=== PATIENT | male | born 1995 | race Caucasian/White ===

== ENCOUNTER 2025-09-20 20:31 | Emergency (ER) | payer OTHER ==
[~2025-09-20] VITALS: Ht 172.7 cm; Wt 60.0 kg
[2025-09-20] MEDS ORDERED: ABILIFY30 MG PO (20:46)
[2025-09-20] MEDS ORDERED: VALIUM10 MG PO (20:47)
[2025-09-20] MEDS ORDERED: ZOLOFT100 MG (20:47)
[2025-09-20] MEDS ORDERED: ONDANSETRON 4 MG TAB ODT SL ONE (21:00)
[2025-09-20] MEDS ORDERED: ONDANSETRON 4 MG HOME.PACK SL ONE (22:30)
[2025-09-20 22:44] VITALS: BP 115/83
== END 2025-09-20 22:47 | disposition home or self-care (01) ==
LOC: ED 20:31
DX: S06.9X9A Unspecified intracranial injury with loss of consciousness of unspecified duration, initial encounter (principal); S00.211A Abrasion of right eyelid and periocular area, initial encounter; W22.8XXA Striking against or struck by other objects, initial encounter; Z79.899 Other long term (current) drug therapy; Z88.8 Allergy status to other drugs, medicaments and biological substances
CPT/HCPCS: 70450; 99284-25; A9270

== ENCOUNTER 2025-10-02 14:47 | Emergency (ER) | payer OTHER ==
[~2025-10-02] VITALS: Ht 172.7 cm; Wt 73.0 kg
--- NOTE | ~2025-10-02 | EKG ---
[facility] [address] [facility] [place], [place] [address] Draft EK completed, results pending confirmation PATIENT NAME: ABBY GIRALDO ALEYDA Electrocardiogram DATE OF : 89 PHYSICIAN: PRELIMINARY REPORT #: [id number] REPORT IS CONFIDENTIAL AND NOT TO BE RELEASED WITHOUT AUTHORIZATION
--- NOTE | ~2025-10-02 | EKG ---
[facility] [address] [facility] [place], [place] [address] Draft EK completed, results pending confirmation PATIENT NAME: ABBY GIRALDO ALEYDA Electrocardiogram DATE OF : 89 PHYSICIAN: PRELIMINARY REPORT #: [id number] REPORT IS CONFIDENTIAL AND NOT TO BE RELEASED WITHOUT AUTHORIZATION
[~2025-10-02 14:47] MED LIST: ABILIFY30 MG PO; VALIUM10 MG PO; ZOLOFT100 MG
--- OUTSIDE RECORDS SUMMARY | 2025-10-02 14:51 | XMS ---
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 - 2 Visits in 30 Days CARE PROVIDERS There are no care providers on record at this time. Dilia has no Care Guidelines for this patient. [facility] VISIT COUNT (12 MO.) 2 [facility] TOTAL 3 NOTE: Visits indicate total known visits. ED/C VISIT TRACKING (12 MO.) 10/02/2025 14:47 [facility] TYPE: Emergency COMPLAINT: - OD INTENTIONAL 09/20/2025 20:32 [facility] TYPE: Emergency COMPLAINT: - HEAD INJURY DIAGNOSES: - Abrasion of right eyelid and periocular area, initial encounter - Allergy status to other drugs, medicaments and biological substances - Other group home (current) drug therapy - Striking against or struck by other objects, initial encounter - Unspecified injury of head, initial encounter - Unspecified intracranial injury with loss of consciousness of unspecified duration, initial encounter 03/29/2025 16:32 [facility] TYPE: Emergency COMPLAINT: - abdominal pain DIAGNOSES: - Gastrointestinal hemorrhage, unspecified - Abdominal Pain - Black or Bloody Stool - Vomiting Blood INPATIENT VISIT TRACKING (12 MO.) No inpatient visits to display in this time frame [email or web address]
[2025-10-02] MEDS ORDERED: OMEPRAZOLE20 MG PO (14:58)
[2025-10-02 15:00] LABS: BASOPHILS 0.4 % (0.2-1.2); EOSINOPHILS 0.4 % (0.8-7.0); LYMPHOCYTES 22.2 % (21.8-53.1); MCH 29.8 PG (25.7-32.2); MCHC 33.5 g/dL (32.3-36.5); MCV 88.8 fL (79.0-92.2); MONOCYTES 5.7 % (5.3-12.2); NEUTROPHILS 70.8 % (34.0-67.9); RBC 5.27 M/uL (4.63-6.08)
[2025-10-02] MEDS ORDERED: SODIUM CHLORIDE 0.9% 1,000 ML IV PRN (15:00)
[2025-10-02 15:19] LABS: BLOOD/HGB, URINE NEGATIVE (Negative); KETONE, URINE NEGATIVE (Negative); LEUK ESTERASE, URINE NEGATIVE (negative); NITRITE, URINE NEGATIVE (negative)
[2025-10-02 15:25] LABS: ALCOHOL, MEDICAL <3 ng/dL (<3); ALT (SGPT) 19 U/L (14-59); AST (SGOT) 12 U/L (15-37); GLOMERULAR FILTRATION RATE,EST 113 mL/min (>60); PROTEIN, TOTAL 7.8 g/dL (6.4-8.2); UREA NITROGEN 11 mg/dL (7-18)
[2025-10-02 15:34] LABS: AMPHETAMINES, URINE NEGATIVE (NEGATIVE); BARBITURATES, URINE NEGATIVE (NEGATIVE); BENZODIAZEPINE, URINE POSITIVE (NEGATIVE); CANNABINOID, URINE NEGATIVE (NEGATIVE); COCAINE, URINE NEGATIVE (NEGATIVE); ECSTASY, URINE NEGATIVE (NEGATIVE); FENTANYL, URINE NEGATIVE (NEGATIVE); METHADONE, URINE NEGATIVE (NEGATIVE); OPIATES, URINE NEGATIVE (NEGATIVE); OXYCODONE, URINE NEGATIVE (NEGATIVE); PHENCYCLIDINE, URINE NEGATIVE (NEGATIVE)
[2025-10-02 20:33] VITALS: BP 127/80
== END 2025-10-02 20:36 | disposition home or self-care (01) ==
LOC: ED 14:47
PROVIDERS: Emergency Medicine
DX: T43.222A Poisoning by selective serotonin reuptake inhibitors, intentional self-harm, initial encounter (principal); Z88.8 Allergy status to other drugs, medicaments and biological substances; Z79.899 Other long term (current) drug therapy
CPT/HCPCS: 36415; 80053; 80307; 81003; 83735; 85025; 93005; 93010; 99285; G0480; J7030